=== PATIENT | female | born 1960 | race Caucasian/White ===

== ENCOUNTER 2019-01-13 15:10 | Emergency (ER) | payer MEDICAID ==
[~2019-01-13] VITALS: Ht 175.3 cm; Wt 68.2 kg
[2019-01-13 15:34] VITALS: Ht 175.3 cm; Wt 68.2 kg
[2019-01-13] MEDS ORDERED: VIBRAMYCIN 100100 MG PO (16:36)
[2019-01-13 17:00] VITALS: BP 147/89
== END 2019-01-13 16:49 | disposition home or self-care (01) ==
LOC: D.ER 15:10
DX: L03.113 Cellulitis of right upper limb (principal)